=== PATIENT | female | born 1945 | race Asian ===

== ENCOUNTER 2017-12-31 07:10 | Day surgery (SDC) | payer MEDICAID ==
[~2017-12-31] VITALS: Ht 154.9 cm; Wt 53.6 kg
[~2017-12-31 07:10] MED LIST: AMLO-511 PO; ASCO500 PO; ATOR20TA86 PO; CHOL200016 PO; CLOP75 PO; FERR-89 PO; ISOS10TA16 PO; METF500T4 PO; METO25 PO; SODIUM CHLORIDE 0.9% 1,000 ML IV ONE; VITAD400 PO
[2017-12-31] MEDS ORDERED: SODIUM CHLORIDE 0.9% 1,000 ML IV ONE (07:30)
[2017-12-31 08:11] LABS: BASOPHILS % (AUTO) 0.6 % (0.0-2.0); EOSINOPHILS % (AUTO) 2.3 % (1.0-6.0); HEMATOCRIT 38.3 % (36-46); HEMOGLOBIN 12.7 g/dL (12.0-16.0); LYMPHOCYTES # (AUTO) 1.2 K/uL (1.0-4.8); LYMPHOCYTES % (AUTO) 32.3 % (22.0-44.0); MEAN CORPUSCULAR HEMOGLOBIN 27.8 pg (26.0-34.0); MEAN CORPUSCULAR HGB CONC 33.2 G/dL (31.0-37.0); MEAN CORPUSCULAR VOLUME 84 fL (80-100); MONOCYTES # (AUTO) 0.3 K/uL (0.1-1.0); MONOCYTES % (AUTO) 8.4 % (2.0-9.0); NEUTROPHILS # (AUTO) 2.1 K/uL (1.8-7.7); NEUTROPHILS % (AUTO) 56.4 % (40.0-70.0); PLATELET COUNT (AUTO) 105 K/uL (150-450); RED BLOOD CELL COUNT(AUTO) 4.58 MIL/uL (4.00-5.20); RED CELL DISTRIBUTION WIDTH 14.7 % (11.5-14.5)
[2017-12-31 08:22] LABS: CALCIUM, TOTAL 9.5 mg/dL (8.8-10.5); CREATININE 0.98 mg/dL (0.60-1.30); POTASSIUM 3.7 mmol/L (3.5-5.1)
[2017-12-31 08:27] LABS: INR 1.1 (0.9-1.1); PROTHROMBIN TIME 11.1 SEC (9.4-11.6)
[2017-12-31 08:28] LABS: ALBUMIN 3.8 g/dL (3.4-5.0); BILIRUBIN,TOTAL 0.8 mg/dL (0.1-1.0); TOTAL PROTEIN, SERUM 8.2 g/dL (6.4-8.2)
[2017-12-31] MEDS ORDERED: LIDOCAINE HCL/PF 1% 30 ML VIAL ONE (08:44)
[2017-12-31] MEDS ORDERED: IOHEXOL 300 MG/ML 150 ML VIAL ONE (08:44)
[2017-12-31] MEDS ORDERED: HEPARIN SODIUM 1000 UNITS/NS 1,000 ML ONE (08:44)
[2017-12-31] MEDS ORDERED: SODIUM BICARBONATE 50 MEQ/50 ML VIAL ONE (08:44)
[2017-12-31 09:05] VITALS: BP 166/69
[2017-12-31] MEDS ORDERED: IOHEXOL 300 MG/ML 100 ML VIAL ONE (09:09)
[2017-12-31] MEDS ORDERED: HEPARIN SODIUM 2,000 UNITS in HEPARIN SODIUM 1000 UNITS/NS 1,000 ML IARTER ONE (09:31)
[2017-12-31] MEDS ORDERED: LIDOCAINE 1% 30 ML/SOD BICARB 8.4% 4 ML SQ ONE (09:45)
[2017-12-31] MEDS ORDERED: IOHEXOL 300 MG/ML 150 ML VIAL IARTER ONE (09:45)
[2017-12-31 09:59] VITALS: BP 138/68
== END 2017-12-31 14:00 | disposition home or self-care (01) ==
LOC: CATHLAB 07:10
PROVIDERS: ATTEND Internal Medicine Cardiovascular Disease
DX: I25.810 Atherosclerosis of coronary artery bypass graft(s) without angina pectoris (principal); E11.9 Type 2 diabetes mellitus without complications; I10 Essential (primary) hypertension; E78.5 Hyperlipidemia, unspecified; Z95.1 Presence of aortocoronary bypass graft; Z79.84 Long term (current) use of oral hypoglycemic drugs; Z79.01 Long term (current) use of anticoagulants; Z79.899 Other long term (current) drug therapy
CPT/HCPCS: 36415; 80053; 85025; 85610; 85730; 93005; 93459; 93567; J1644; J3490 ×2; J7030; Q9967 ×2